=== PATIENT | male | born 1980 | race Caucasian/White ===

== ENCOUNTER → 2019-08-15 11:59 | Outpatient (CLI) | payer OTHER, SELFPAY ==
--- NOTE | ~2019-08-15 | MR_ITS ---
EXAMINATION: MR knee RT wo con DATE: 08/15/2019 12:59 INDICATION: Anterior and medial right knee pain TECHNIQUE: Magnetic resonance imaging (MRI) of the right knee was performed without intravenous contr ast. Sequences included coronal PD-weighted FSE, coronal PD-weighted FS FSE, sagittal T2-weighted FS E, sagittal PD-weighted FS FSE and axial PD weighted fat saturated FSE. COMPARISON: Right knee radiographs dated 08/02/2019 FINDINGS: Medial compartment: Increased intrasubstance signal in the body and posterior horn of the medial meniscus which does not contact the articular surface consistent with mucoid degeneration without discrete tear. Articular ca rtilage is normal. Lateral compartment: Lateral meniscus is normal. Articular cartilage is normal. Patellofemoral compartment: Small region of deep chondral fissuring with subtle underlying cortical irregularity but without dege nerative subcortical changes at the inferior aspect of the medial trochlea. Ligaments and tendons: Anterior and posterior cruciate ligaments are normal. The medial collateral ligament and fibular german ateral ligament complex are normal. Patellar tendon is normal. Mild tendinopathy at the distal christian ceps tendon with small focus of mild marrow edema at its patellar insertion. The visualized medial an d lateral hamstring tendons as well as the iliotibial band are normal. Fluid: Physiologic amount of fluid in the joint space. No loose osteochondral bodies identified. A small sub cutaneous vessels extends transversely across a 1.7 x 2.2 x 0.5 cm fluid collection with irregular ma rgins anterior to the patellar tendon which could represent a small hematoma or prepatellar bursal fl uid collection in the setting of bursitis. Osseous/other: Aside from the disc noted small focus of mild edema at the proximal patella, there is normal marrow s ignal. No fracture or pathologic marrow replacing process. IMPRESSION: 1. 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 2. Mild distal quadriceps tendinopathy with small focus of mild reactive edema at the patellar insert ion. 3. Small prepatellar hematoma versus mild prepatellar bursitis. Reviewed, dictated and finalized at location A. [employer] IMPRESSION: 1. 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 2. Mild distal quadriceps tendinopathy with small focus of mild reactive edema at the patellar insertion. 3. Small prepatellar hematoma versus mild prepatellar bursitis.
== END ==
PROVIDERS: PCP Family Medicine; Visit Provider Orthopaedic Surgery
DX: M25.561 Pain in right knee (principal); M23.8X1 Other internal derangements of right knee
CPT/HCPCS: 73721